=== PATIENT | male | born 1955 | race Caucasian/White ===

== ENCOUNTER 2017-10-10 12:53 | Emergency (ER) | payer SELFPAY ==
[~2017-10-10] VITALS: Ht 167.6 cm; Wt 83.0 kg
[2017-10-10] MEDS ORDERED: FURO20 PO (13:24)
[2017-10-10] MEDS ORDERED: AMIT50TA3 PO (13:24)
[2017-10-10] MEDS ORDERED: METO25 PO (13:24)
[2017-10-10] MEDS ORDERED: IBUPROFEN 800 MG TABLET PO ONE (15:15)
[2017-10-10 15:51] VITALS: BP 112/52
== END 2017-10-10 15:52 | disposition home or self-care (01) ==
LOC: EMS 12:58
DX: S83.92XA Sprain of unspecified site of left knee, initial encounter (principal); I10 Essential (primary) hypertension; X50.9XXA Other and unspecified overexertion or strenuous movements or postures, initial encounter; Y93.89 Activity, other specified; Y92.89 Other specified places as the place of occurrence of the external cause; Y99.8 Other external cause status
CPT/HCPCS: 99284